=== PATIENT | female | born 1975 | race Caucasian/White ===

== ENCOUNTER 2018-01-27 14:22 | Emergency (ER) | payer BC | END 2018-01-27 17:13 | disposition home or self-care (01) | LOC: D.ER 14:22 | DX: H66.93 Otitis media, unspecified, bilateral (principal); B37.9 Candidiasis, unspecified ==

== ENCOUNTER 2019-06-27 12:56 | Emergency (ER) | payer MEDICAID ==
[~2019-06-27] VITALS: Ht 170.2 cm; Wt 61.4 kg
[2019-06-27 13:07] VITALS: Ht 170.2 cm; Wt 61.4 kg
[2019-06-27 14:01] LABS: BASOPHILS 0.3 % (0-2); EOSINOPHILS 8.8 % (0-7); HEMATOCRIT 40.2 % (36.0-48.0); IMMATURE GRANULOCYTES 0.1 % (0-5); LYMPHOCYTES 31.7 % (15-50); MCHC 34.8 g/dL (31.0-37.0); MCV 89.1 fL (80.0-100.0); MEAN PLATELET VOLUME 9.6 fL (7.4-10.4); MONOCYTES 6.3 % (2-11); NEUTROPHILS 52.8 % (40-80); PLATELET COUNT 240 10x3/uL (130-400); RBC 4.51 10x6/uL (4.00-5.40); RDW 13.5 % (11.5-14.5); WBC 7.4 10x3/uL (4.8-10.8)
[2019-06-27 14:05] LABS: ALBUMIN 3.6 g/dL (3.4-5.0); BILIRUBIN - TOTAL 0.34 mg/dL (0.2-1.3); CALCIUM 8.9 mg/dL (8.5-10.1); CARBON DIOXIDE 29.5 mmol/L (21.0-32.0); CREATININE - SERUM 0.9 mg/dL (0.6-1.3); POTASSIUM - SERUM 3.5 mmol/L (3.5-5.1); PROTEIN - SERUM 6.7 g/dL (6.4-8.2)
[2019-06-27 14:07] LABS: UDS - AMPHET NEGATIVE QUAL (NEGATIVE); UDS - BARB NEGATIVE QUAL (NEGATIVE); UDS - BENZO NEGATIVE QUAL (NEGATIVE); UDS - COCAINE NEGATIVE QUAL (NEGATIVE); UDS - OPIATE NEGATIVE QUAL (NEGATIVE); UDS - PCP NEGATIVE QUAL (NEGATIVE); UDS - THC POSITIVE QUAL (NEGATIVE)
[2019-06-27 14:31] LABS: APPEARANCE CLEAR (CLEAR); BILIRUBIN NEGATIVE (NEGATIVE); COLOR YELLOW (YELLOW); GLUCOSE NEGATIVE (NEGATIVE); KETONE NEGATIVE (NEGATIVE); NITRITE NEGATIVE (NEGATIVE); PROTEIN NEGATIVE (NEGATIVE); SPECIFIC GRAVITY 1.015 (1.005-1.020); UROBILINOGEN NORMAL (NORMAL)
[2019-06-27 14:32] LABS: BACTERIA MODERATE /hpf (NONE SEEN); EPITHELIAL CELLS 0-5 /hpf (0-5); MUCUS <1+ /lpf (NONE SEEN); WHITE CELLS - URINE 0-5 /hpf (0-5)
--- NOTE | 2019-06-27 15:00 | NUR ---
PT IS A HIGH RISK ACCORDING ASSESSMENT. ER NURSE AT BEDSIDE WHEN I ARRIVED. PT IS TEARFUL AND ADMITS TO CUTTING HER WRIST TODAY. PT HAS A HX OF BIPOLAR AND PTSD. PT IS OPEN TO PLACEMENT IN A FACILITY. DR. MCCLELLAN ORDERED SITTER FOR SUICIDE WATCH. PT IN PAPER SCRUBS AND WILL BE MOVED TO SECURE ROOM. SAFETY PLAN DONE AND RESOURCES GIVEN.
[2019-06-27 22:49] VITALS: BP 125/65
== END 2019-06-27 22:50 ==
LOC: D.ER 12:56
PROVIDERS: Emergency Medicine
DX: R45.851 Suicidal ideations (principal); F31.9 Bipolar disorder, unspecified; T14.8XXA Other injury of unspecified body region, initial encounter; X78.9XXA Intentional self-harm by unspecified sharp object, initial encounter